=== PATIENT | female | born 2000 | race Caucasian/White ===

== ENCOUNTER 2019-03-16 23:19 | Emergency (ER) | payer SELFPAY ==
[2019-03-16 23:20] VITALS: BMI 34.9
[2019-03-16 23:33] VITALS: TEMP 98.2
[2019-03-17] MEDS ORDERED: cefTRIAXone (Rocephin) 250 mg Inj IM STA (01:04)
--- NOTE | 2019-03-17 02:05 | ED PDOC ---
Arrival/HPI - General Chief Complaint: Female Genitourinary Time Seen by Provider: 03/16/19 23:23 Historian: Patient - History of Present Illness Narrative History of Present Illness (Text): 03/17/19 02:06 18-year-old female presents today with a 4-day history of vaginal lesions, with pain radiating into the left groin. No urinary symptoms. Patient states she noticed some white vaginal discharge when the vaginal lesions appeared. Patient states she has a previous history of chlamydia in the past but denies any recent STDs. Patient states she has had one sexual partner for the past year. Patient states she uses protection. Patient denies fevers or chills. Patient states she is been extremely anxious since she is noticed these vaginal lesions and has been having nauseousness and occasional vomiting. She denies any abdominal pain at present time. Patient denies back pain at present time. No other complaints. Past Medical History - Provider Review Nursing Documentation Reviewed: Yes - Travel History Have you recently traveled outside [place] w/in the past 3 mons?: No - Psychiatric Hx Substance Use: No Family/Social History - Physician Review Nursing Documentation Reviewed: Yes Family/Social History: Unknown Family HX Smoking Status: Never Smoked Hx Alcohol Use: No Hx Substance Use: No Allergies/Home Meds Allergies/Adverse Reactions: Allergies peanut Adverse Reaction (Verified 03/16/19 23:34) RASH wheat Adverse Reaction (Verified 03/16/19 23:34) RASH Review of Systems - Review of Systems Constitutional: absent: Fatigue, Fevers Respiratory: absent: SOB, Cough Cardiovascular: absent: Chest Pain, Palpitations Gastrointestinal: Nausea, Vomiting. absent: Abdominal Pain, Constipation, Diarrhea Genitourinary Female: Vaginal Discharge, Other (vaginal lesions). absent: Dysuria, Frequency, Hematuria, Urine Output Changes Musculoskeletal: absent: Arthralgias, Back Pain, Neck Pain Skin: absent: Rash, Pruritis Neurological: absent: Headache, Dizziness Psychiatric: Anxiety. absent: Depression, Suicidal Ideation Physical Exam Vital Signs Reviewed: Yes Vital Signs Temp Pulse Resp BP Pulse Ox 03/16/19 23:29 98.2 F 90 16 159/82 H 100 Temperature: Afebrile Blood Pressure: Hypertensive Pulse: Regular Respiratory Rate: Normal Appearance: Positive for: Well-Appearing, Non-Toxic, Comfortable Pain Distress: None Mental Status: Positive for: Alert and Oriented X 3 - Systems Exam Head: Present: Atraumatic Neck: Present: Normal Range of Motion Respiratory/Chest: Present: Clear to Auscultation, Good Air Exchange. No: Respiratory Distress, Accessory Muscle Use Cardiovascular: Present: Regular Rate and Rhythm, Normal S1, S2. No: Murmurs Abdomen: No: Tenderness, Distention, Peritoneal Signs, Rebound, Guarding Genitourinary/Pelvic Exam: Present: Vaginal Discharge (white vaginal discharge noted), Vaginal Lesions (multiple open vesicles noted to labia. + minimal edema to labia. ), Other (chaparoned by Josselin henry RN). No: Normal External Genitalia, Vaginal Bleeding Back: Present: Normal Inspection. No: CVA Tenderness, Midline Tenderness, Paraspinal Tenderness Upper Extremity: Present: Normal ROM Lower Extremity: Present: Normal ROM Neurological: Present: GCS=15, Speech Normal Skin: Present: Warm, Dry, Normal Color Psychiatric: Present: Alert, Oriented x 3 Medical Decision Making ED Course and Treatment: 03/17/19 02:09 18-year-old female with 4-day history of vaginal lesions and some groin pain. With anxiety leading to nausea and vomiting Abdomen is soft nontender nondistended. Back is nontender. There is no CVA tenderness. Patient with multiple open vesicles and ulcerations noted to the labia with minimal swelling. There is also a white vaginal discharge noted on speculum exam. We will treat the patient for genital herpes with acyclovir 400 mg p.o. Gonorrhea and Chlamydia cultures are pending Patient was given Rocephin and Zithromax for possible STD. Patient was advised to follow-up with the primary care physician and ice cream server within the next 2 days. Patient was advised to me to return if symptoms worsen persist or if new concerning symptoms develop. Had a long in- depth conversation with the patient regarding genital herpes and transmission and recurrence. Patient verbalizes understanding of discharge instructions and need for immediate followup. All aspects of this case were discussed the attending of record. Impression: Genital herpes, vaginal discharge Motrin every 6 hours as needed for pain Acyclovir 3 times daily x7 days Follow-up with a ice cream server within the next 2 days Follow-up with primary care physician within the next 2 days Increase fluids Return immediately if symptoms worsen persist or if new concerning symptoms develop Reassessment Condition: Re-examined, Improved - Medication Orders Current Medication Orders: Discontinued Medications Acyclovir (Zovirax) 400 mg PO STAT STA; Protocol Stop: 03/17/19 01:06 Last Admin: 03/17/19 01:28 Dose: 400 mg Azithromycin (Zithromax) 1,000 mg PO STAT STA; Protocol Stop: 03/17/19 01:05 Last Admin: 03/17/19 01:28 Dose: 1,000 mg Ceftriaxone Sodium (Rocephin) 250 mg IM STAT STA; Protocol Stop: 03/17/19 01:05 Last Admin: 03/17/19 01:29 Dose: 250 mg IM Administration Charges Document 03/17/19 01:29 IT (Rec: 03/17/19 01: IT [id number]) Injection Site MAR Injection Site Right Gluteus Vishnu Charges for Administration # of IM Administrations 1 Ketorolac Tromethamine (Toradol) 60 mg IM STAT STA Stop: 03/17/19 01:05 Last Admin: 03/17/19:29 Dose: 60 mg MAR Pain Assessment Document 03/17/19 01:29 IT (Rec: 03/17/19 01: IT [id number]) Pain Reassessment Is this a pain reassessment? No Sleep Is patient sleeping during reassessment? No Presence of Pain Presence of Pain Yes IM Administration Charges Document 03/17/19:29 IT (Rec: 03/17/19: IT [id number]) Injection Site MAR Injection Site Left Deltoid Charges for Administration # of IM Administrations 1 Disposition/Present on Arrival - Present on Arrival Any Indicators Present on Arrival: No History of DVT/PE: No History of Uncontrolled Diabetes: No Urinary Catheter: No History of Decub. Ulcer: No History Surgical Site Infection Following: None - Disposition Have Diagnosis and Disposition been Completed?: Yes Diagnosis: Genital herpes, Vaginal discharge Disposition: HOME/ ROUTINE Disposition Time: 01:00 Patient Plan: Discharge Patient Problems: Current Active Problems Problem Status Onset Genital herpes Acute Vaginal discharge Acute Condition: GOOD Discharge Instructions (ExitCare): Genital Herpes (DC), STD Prevention, Sexuall y-Transmitted Diseases (DC), Vaginal Discharge in Adults Additional Instructions: Motrin every 6 hours as needed for pain Acyclovir 3 times daily x7 days Follow-up with a ice cream server within the next 2 days Follow-up with primary care physician within the next 2 days Increase fluids Return immediately if symptoms worsen persist or if new concerning symptoms develop Prescriptions: Acyclovir [Zovirax] 400 mg PO TID #21 tab Ibuprofen [Motrin] 600 mg PO Q6H PRN #20 tab PRN Reason: pain/fever reduction Referrals: Loni Martins MD [Primary Care Provider] - Follow up with primary Rhett Burns MD [Staff Provider] - Follow up with primary [facility] [Outside] - [facility] - [facility] - Follow up with primary Forms: [employer] (Turkish), WORK NOTE
[2019-03-17 02:38] VITALS: BP 128/68; PULSE 81; RESP 17; O2SAT 99
== END 2019-03-17 02:37 | disposition home or self-care (01) ==
LOC: ED 23:19
DX: A60.00 Herpesviral infection of urogenital system, unspecified (principal); N89.8 Other specified noninflammatory disorders of vagina
CPT/HCPCS: 81025; 87491; 87591; 96372; 99283; J0696; J1885; J8499